=== PATIENT | male | born 1990 | race Caucasian/White ===

== ENCOUNTER 2021-05-25 03:30 | Observation (INO) | payer BC, SELFPAY ==
[2021-05-25] VITALS (18 sets, daily range): BP systolic 115–139; BP diastolic 70–94; PULSE 87–145; RESP 12–20; TEMP 35.7–36.7; O2SAT 91–100; BMI 19.8
--- NOTE | ~2021-05-25 | US_ITS ---
EXAMINATION: US renal BI DATE: 05/25/2021 11:36 INDICATION: Acute renal insufficiency TECHNIQUE: Multiple ultrasound grayscale images of the kidneys were obtained. COMPARISON: None. FINDINGS: The right kidney measures 10.3 x 5.5 x 4.7 cm. The left kidney measures 10.1 x 4.9 x 5.4 cm. The kidn eys demonstrate normal echogenicity. There is no hydronephrosis in either kidney. No stones identifie d. The bladder is normal. IMPRESSION: 1. Normal kidneys without hydronephrosis. Reviewed, dictated and finalized at location A. [employer]
--- NOTE | 2021-05-25 03:43 | ECG_ITS ---
Measurements Intervals [place] Rate: 129 P: 74 NM: 109 QRS: 88 QRSD: 82 T: -38 QT: 269 QTc: 394 Interpretive Statements SINUS TACHYCARDIA WITH SHORT NM INTERVAL BASELINE ARTIFACT- I, II, III, AVR, AVL, AVF, V2-V6 ABNORMAL ECG Electronically Signed On 05-25-2021 6:24:29 [employer] by Buster Guidry D.O.
[2021-05-25] MEDS: SODIUM CHLORIDE 0.9% IV 1,000 ML 999 ML IV CONT ×2 (04:03→05:03)
[2021-05-25] MEDS: PROMETHAZINE HCL 25 MG/ML AMPUL 12.5 MG IV PUSH ×2 (04:03→08:23)
[2021-05-25 04:11] LABS: Basophils Percent Auto 0.2 % (0.2-1.2); Eosinophils Absolute Auto 1.1 K/mm3 (0-0.3); Eosinophils Percent Auto 7.1 % (0-4.4); Hematocrit 50.7 % (42.0-52.0); Immature Granulocyte Absolute 0.07 K/mm3 (0.00-0.031); Immature Granulocyte Percent A 0.4 % (0-0.5); Lymphocytes Absolute Auto 0.45 K/mm3 (0.9-3.2); Lymphocytes Percent Auto 2.8 % (18.3-44.2); Mean Corpuscular HGB Conc 35.5 g/dl (32-36); Mean Corpuscular Hemoglobin 32.6 pg (26-34); Mean Corpuscular Volume 91.8 fl (80-100); Mean Platelet Volume 10.8 fl (7.4-10.4); Monocytes Absolute Auto 1.9 K/mm3 (0.1-0.6); Monocytes Percent Auto 11.8 % (2.6-8.5); Neutrophils Absolute Auto 12.4 K/mm3 (1.3-6.7); Neutrophils Percent Auto 77.7 % (45.5-73.1); Platelet Count Result 288 k/mm3 (150-375); Red Blood Count 5.52 M/mm3 (4.6-6.20); Red Cell Distribution Width 12.4 % (11.5-14.5)
[2021-05-25 04:22] LABS: Alanine Aminotransferase 29 U/L (4-50); Albumin Level 5.9 g/dL (3.5-5.1); Alkaline Phosphatase 78 U/L (38-126); Anion Gap 23 mmol/L (8-16); Aspartate Amino Transferase 32 U/L (17-59); Bilirubin,Total 0.7 mg/dL (0.2-1.3); Blood Urea Nitrogen 33 mg/dL (9-20); Calcium 10.4 mg/dL (8.4-10.2); Carbon Dioxide 17 mmol/L (22-30); Chloride 96 mmol/L (98-107); Estimated CRCL calculation 21 ml/min; Estimated Glomerular Filt Rate 16; Glucose 152 mg/dL (65-110); Lipase 155 U/L (23-300); Potassium 3.8 mmol/L (3.4-5.0); Sodium 136 mmol/L (137-145)
--- NOTE | 2021-05-25 04:54 | ED.GENADULT ---
HPI - General Adult General Chief complaint: Nausea/Vomiting/Diarrhea Stated complaint: n/v/d Time Seen by Provider: 05/25/21 03:41 History of Present Illness HPI narrative: Patient is a 30-year-old male who presents to the ER with nausea and vomiting. Associated diarrhea. Ongoing for last 2 days. Has had 15 episodes of each. Varying in size. No blood. No fevers or chills or sweats. No known sick contacts. No recent travel outside the area. No history of inflammatory bowel disease. No recent antibiotic usage. Reports mild dizziness when going from sitting to standing. No syncope. Has been taking Zofran prescribed by PCP without relief. Related Data Allergies Allergy/AdvReac Type Severity Reaction Status Date / Time No Known Allergies Allergy Verified 05/25/21 03:37 Review of Systems Review of Systems: All systems reviewed & are unremarkable except as noted in HPI and below Constitutional: Constitutional: Denies chills, Reports fatigue and Denies fever(s) ENT: Denies nasal congestion and Denies sore throat Gastrointestinal: Gastrointestinal: Denies abdominal pain, Denies bloating, Reports diarrhea, Reports nausea and Reports vomiting Genitourinary: Genitourinary: Denies dysuria and Denies urinary frequency Neurologic: Reports dizziness, Denies syncope, Denies focal weakness and Denies numbness PMFSH Past Medical History Medical History (Updated 05/25/21 @ 05:52 by Marc Anaya MD) Healthy adult male Surgical History Surgical History (Updated 05/25/21 @ 05:04 by Marc Anaya MD) No history of previous surgery Social History Social History Smoking status: Never smoker Alcohol intake: current Exam Narrative: GENERAL: Well-appearing, well-nourished, and in no acute distress. HEAD: Normocephalic, atraumatic. ENT: Mucous membranes moist. CHEST: Clear to auscultation. No respiratory distress. HEART: Tachycardic regular. Normal peripheral pulses. ABDOMEN: Soft, nontender, nondistended, normal active bowel sounds. EXTREMITIES: Normal range of motion. No edema. SKIN: Warm, dry, no rash. NEURO: Alert and oriented x3. PSYCH: Normal mood and affect. Course Course Emergency Course: Patient informed of results. Admitted to hospitalist service. Abdomen soft nontender. White count felt to be reactive to her vomiting. Continue hydration. Vital Signs Vital signs: Vital Signs Temperature 96.3 F L 05/25/21 03:32 Pulse Rate 139 H 05/25/21 03:32 Respiratory Rate 20 05/25/21 03:32 Blood Pressure 126/94 H 05/25/21 03:32 Pulse Oximetry 96 05/25/21 03:32 Temperature 96.3 F L 05/25/21 03:32 Pulse Rate 93 05/25/21 05:00 Respiratory Rate 13 05/25/21 05:00 Blood Pressure 121/78 05/25/21 04:16 Pulse Oximetry 97 05/25/21 05:00 Medical Decision Making Vital Signs Vital Signs: Vital Signs Temperature 96.3 F L 05/25/21 03:32 Pulse Rate 139 H 05/25/21 03:32 Respiratory Rate 20 05/25/21 03:32 Blood Pressure 126/94 H 05/25/21 03:32 Pulse Oximetry 96 05/25/21 03:32 Temperature 96.3 F L 05/25/21 03:32 Pulse Rate 93 05/25/21 05:00 Respiratory Rate 13 05/25/21 05:00 Blood Pressure 121/78 05/25/21 04:16 Pulse Oximetry 97 05/25/21 05:00 Lab Data Result diagrams: 05/25/21 04:02 05/25/21 04:02 Labs: Lab Results 05/25/21 05/25/21 05/25/21 Range/Units 04:02 04:02 05:11 WBC 16.0 H (4.5-10.0) K/mm3 RBC 5.52 (4.6-6.20) M/mm3 Hgb 18.0 (14.0-18.0) g/dL Hct 50.7 (42.0-52.0) % MCV 91.8 (80-100) fl MCH 32.6 (26-34) pg MCHC 35.5 (32-36) g/dl RDW 12.4 (11.5-14.5) % Plt Count 288 (150-375) k/mm3 MPV 10.8 H (7.4-10.4) fl Immature Gran % (Auto) 0.4 (0-0.5) % Neut % (Auto) 77.7 H (45.5-73.1) % Lymph % (Auto) 2.8 L (18.3-44.2) % [place] % (Auto) 11.8 H (2.6-8.5) % Eos % (Auto) 7.1 H (0-4.4) % Baso % (Auto) 0.2 (0.2-1.2) % Lymph # (Auto) 0.45 L
[2021-05-25 05:21] LABS: Add Urine Microscopic? YES; Appearance Urine Cloudy (Clear); Bacteria Urine Trace /hpf; Bilirubin Urine Negative (Negative); Blood Urine 2+ (Negative); Color Urine Amber (Yellow); Glucose Urine UA Negative (Negative); Hyaline Casts Urine 50+ /lpf; Ketones Urine Trace mg/dL (Negative); Leukocyte Esterase Ur Negative LEU/UL (Negative); Mucus Urine Heavy /lpf; Nitrate Urine Negative (Negative); Protein Urine 2+ mg/dL (Negative); Squamous Epithelial Cell Urine Many /hpf (Few); Urobilinogen Urine Negative mg/dL (<2.0)
[2021-05-25 06:09] LABS: Hemoglobin A1C 5.2 % (<5.7)
[2021-05-25] MEDS: SODIUM CHLORIDE 0.9% IV 1,000 ML 150 ML IV CONT ×2 (06:25→13:46)
--- NOTE | 2021-05-25 06:28 | ADMGEN ---
This patient, Axel Scott, was admitted to [facility] Surg Room 314-02. Patient/family oriented to hospital policies and general routines including ID bracelet, bed and alarms, visiting hours, pain management, procedures, bathroom and other care routines, personal items, smoking policy, room service/diet, and visiting hours. Information on how to activate the Rapid Response Team has been discussed. Patient/Family are encouraged to report perceived risks to care and to ask questions if they do not understand what they are told or what they should do.
--- NOTE | 2021-05-25 07:59 | PM.IMHP ---
H&P: HPI History of Present Illness Date/Time: PATIENT ADMITTED UNDER OBSERVATION CARE 05/25/21 07:59 Chief Complaint: Nausea and Vomiting and Diarrhea Narrative: 30yo healthy male here for nausea, vomiting and diarrhea. 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 This awoke him from sleep around 2:00 a.m.. Over the past 24 hours he has had 15 episodes of vomiting and 15 episodes of diarrhea. There is no hematemesis, melena or hematochezia. No abdominal pain but was having cramping abdominal pain that would improve after a bowel movement. No history of gastric ulcers. He does not believe that he consumed any food or drink that was tainted. No recent travel. He has city water. No sick contacts. No fever but was having chills. He has been vaccinated with [employer] for COVID in August but has not had his booster. He did feel dizzy when he stood and some slight cough. Cough is productive of clear sputum. Coughs has been for 2 weeks that he feels is associated with seasonal allergies. He does not take any [id number] medications. There has been no new medications. He had a slight headache but no vision changes or sore throat. He was exposed to COVID after [place] but those symptoms resolved. No anosmia or dysgeusia. No complaints of chest pain, palpitations or shortness of breath. No recent antibiotic use. No history of irritable bowel syndrome or inflammatory bowel disease. He has never had EGD or colonoscopy. Normal urine output. No dysura, back pain, hematuria or foamy urine. No rashes. No family history of kidney disease. 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 In the ED, he was tachycardic with HR 139 and mildly hypertensive at 129/94. He was afebrile. White count was 16K with eosinophilia. Serum bicarb was 17 with BUN 33, creatinine 4.4 and anion gap 23. Calcium was elevated at 10.4 with elevated protein and albumin. Lipase was normal. UA showing protein, blood and many squamous cells. Review of Systems Review of Systems: All systems reviewed & are unremarkable except as noted in HPI and below [facility] Past Medical History Medical History (Updated 05/25/21 @ 09:54 by Tony John MD) Healthy adult male Surgical History Surgical History (Updated 05/25/21 @ 05:04 by Marc Anaya MD) No history of previous surgery Family History Family History (Updated 05/25/21 @ 09:51 by Tony John MD) Mother Nephrolithiasis Social History Social History (Updated 05/25/21 @ 09:52 by Tony John MD) Social History: He lives alone. Denies tobacco use. Drinks 10-15 alcoholic drinks per week. Denies drug use. Full code. Nominated his mother Belinda Scott to be the individual would make medical decisions for him if he is unable. Smoking status: Never smoker Second hand tobacco smoke exposure: No Alcohol intake: current Drinks per week: 10 Substance use type: does not use Spiritual care concerns: No Meds Home Medications and Allergies Home Medications Medication Instructions Recorded Confirmed Type ondansetron 4 mg disintegrating 4 mg PO Q8H PRN 10 Days #20 tablet 05/24/21 05/25/21 Rx tablet Allergies Allergy/AdvReac Type Severity Reaction Status Date / Time No Known Allergies Allergy Verified 05/25/21 03:37 Vital Signs Vital Signs - 24 hr 05/25/21 03:32 05/25/21 03:43 05/25/21 03:44 Temperature 96.3 F L Pulse Rate 139 H 145 H 138 H Respiratory Rate 20 19 16 Blood Pressure 126/94 H 126/86 Pulse Oximetry 96 96 05/25/21 03:45 05/25/21 03:46 05/25/21 04:00 Temperature Pulse Rate 137 H 128 H 124 H Respiratory Rate 17 18 Blood Pressure 139/77 Pulse Oximetry 96 93 97 05/25/21 04:02 05/25/21 04:15 05/25/21 04:16 Temperature Pulse Rate 130 H 103 H 105 H Respiratory
[2021-05-25 10:49] LABS: Albumin Level 5.4 g/dL (3.5-5.1); Anion Gap 18 mmol/L (8-16); Blood Urea Nitrogen 26 mg/dL (9-20); CRP 0.9 mg/dL (<1.0); Carbon Dioxide 20 mmol/L (22-30); Chloride 103 mmol/L (98-107); Creatine Kinase 364 U/L (55-170); Estimated CRCL calculation 46 ml/min; Estimated Glomerular Filt Rate 45; Glucose 96 mg/dL (65-110); Phosphorus 4.8 mg/dL (2.5-4.5); Potassium 3.4 mmol/L (3.4-5.0); Sodium 141 mmol/L (137-145)
[2021-05-25 10:57] LABS: Complement C3 117 mg/dL (88-165)
[2021-05-25 12:29] LABS: Creatinine Urine 242.5 mg/dL; Total Protein Urine Random 28 mg/dL; Ur Ttl Prot Creatinine Ratio 0.12 mg/mg (0-0.20)
[2021-05-25 12:32] LABS: Sodium Urine Random 17 meq/L
[2021-05-25 14:19] LABS: Eosinophil Urine None Seen % (None Seen)
[2021-05-25 18:33] LABS: Anion Gap 11 mmol/L (8-16); Blood Urea Nitrogen 20 mg/dL (9-20); Calcium 8.6 mg/dL (8.4-10.2); Carbon Dioxide 20 mmol/L (22-30); Chloride 107 mmol/L (98-107); Estimated CRCL calculation 81 ml/min; Estimated Glomerular Filt Rate > 60; Glucose 96 mg/dL (65-110); Potassium 3.5 mmol/L (3.4-5.0); Sodium 138 mmol/L (137-145)
--- NOTE | 2021-05-25 19:35 | PC.NURSE ---
Pt requesting discharge, Dora ROSARIO updated and recent labs reported, new orders to D/C home without restrictions.
[2021-05-25 19:53] LABS: SARS-CoV-2 RNA PCR Negative
--- NOTE | 2021-05-25 20:03 | PM.DS ---
DS: Admitting Diagnosis Discharge Date 05/25/21 Admitting Diagnosis Nausea, vomiting and diarrhea DS: Discharge Diagnosis Discharge Diagnosis (1) ARNAV (acute kidney injury): Code(s): N17.9 - Acute kidney failure, unspecified Status: Acute (2) Metabolic acidosis: Code(s): E87.2 - Acidosis Status: Acute (3) Nausea & vomiting: Code(s): R11.2 - Nausea with vomiting, unspecified Status: Acute (4) Leukocytosis: Code(s): D72.829 - Elevated white blood cell count, unspecified Status: Acute (5) Diarrhea: Code(s): R19.7 - Diarrhea, unspecified Status: Acute (6) Hyperglycemia: Code(s): R73.9 - Hyperglycemia, unspecified Status: Acute (7) Eosinophilia: Code(s): D72.10 - Eosinophilia, unspecified Status: Acute DS: Summary Hospital Course Reason for hospitalization: 30yo healthy male who presents with complaints of nausea, vomiting and diarrhea and found to have ARNAV. Please see H&P for details Hospital Course: 30-year-old healthy male presents to emergency room with complaints of nausea, vomiting and diarrhea. Symptoms began about 24 hours prior to admission. No recent antibiotic use. No chronic bowel disorders. In the ED, he was tachycardic with HR 139 and mildly hypertensive at 129/94. He was afebrile. White count was 16K with eosinophilia. He does have seasonal allergies. Serum bicarb was 17 with BUN 33, creatinine 4.4 and anion gap 23. Calcium was elevated at 10.4 with elevated protein and albumin. Lipase was normal. UA showing protein, blood and many squamous cells. Patient was started on IV fluids and admitted for further care. Patient's renal function returned to normal. His nausea and vomiting resolved. Renal ultrasound was normal. Urine cultures negative. He was eating and tolerating it well. I was called by the nurse later in the evening stating the patient was going to sign himself out against medical advice if he was not discharged. Given that his renal function had returned to normal by blood work that evening, we opted to proceed with discharge. Patient did well and was able to be discharged home on 05/25/20. Status at Discharge Cognitive/behavioral status at discharge: Stable Time Spent with Patient Time attestation: Total time spent providing and/or coordinating discharge services: 45 minutes Time spent: Greater than 30 minutes Exam Narrative: AF 98.0 132/74 97 18 98% ra Gen - well-nourished, well-developed male in no acute respiratory distress who is nontoxic-appearing lying semi recumbent in bed HEENT - normocephalic. Atraumatic. Pupils equal round and reactive. Extraocular motions intact. Sclera mildly injected and anicteric. Nares patent. Oropharynx was clear. No oral lesions. Moist mucous membranes. Tongue was midline. Palate sujit symmetrically. No facial asymmetry. Neck - neck was supple. No dominant adenopathy, thyromegaly or masses. Chest - lungs are clear to auscultation bilaterally. No wheezes or crackles. CV - heart was regular rate and rhythm. S1-S2. No murmurs gallops or rubs. Abd - abdomen was soft. Nontender. Nondistended. Positive bowel sounds. No organomegaly or masses. Back - no CVA tenderness. Ext - no clubbing, cyanosis or edema. 2+ DP pulses bilaterally. Neuro - patient is alert and oriented x4. Strength is 5/5 in both upper and lower extremities. Cranial nerves 2-12 are intact. Speech is clear. Psych - normal mood and affect. Patient is pleasant and cooperative. Skin - warm and dry. No rashes noted. DS: Data Data Completed and Pending Labs on day of discharge: Labs from last 24 hours 05/25/21 05/25/21 05/25/21 18:15 11:39 11:39 WBC RBC Hgb Hct MCV MCH MCHC RDW Plt Count MPV Immature Gran % (Auto) Neut % (Auto) Lymph % (Auto) [place] % (Auto) Eos % (Auto) Baso % (Auto) Lymph # (Auto) [place] # (Auto
[2021-05-28 13:09] LABS: Anti Streptolysin O Screen <50 IU/mL (<200)
[2021-05-28 18:04] LABS: Anti Glomerular Basement Memb <1.0 AI (<1.0)
[2021-05-29 23:10] LABS: ANCA Screen Negative (Negative)
[2021-05-30 15:36] LABS: Complement Total CH50 >60 U/mL (31-60)
== END 2021-05-25 20:33 | disposition home or self-care (01) ==
LOC: ANHED 04:04 → ANH3MEDSUR 05:49
PROVIDERS: Admitting Provider Internal Medicine; Emergency Provider Emergency Medicine; PCP Family Medicine; Visit Provider Internal Medicine
DX: N17.9 Acute kidney failure, unspecified (principal); E87.2 Acidosis; R11.2 Nausea with vomiting, unspecified; R19.7 Diarrhea, unspecified; R73.9 Hyperglycemia, unspecified; D72.10 Eosinophilia, unspecified; Z20.822 Contact with and (suspected) exposure to COVID-19
CPT/HCPCS: 36415; 76775; 80048; 80053; 80069; 81001; 82550; 82570; 83036; 83520; 83690; 84156; 84300; 85025; 85999; 86036; 86038; 86060; 86140; 86160; 86162; 86225; 87086; 93005; 96361; 96374; 96376; 99285; C9803; G0378; J2550; J7030; U0003; U0005